=== PATIENT | male | born 1995 | race Caucasian/White ===

== ENCOUNTER 2017-01-21 09:44 | Emergency (ER) | payer SELFPAY ==
[2017-01-21 10:57] VITALS: RESP 17; O2SAT 98
--- NOTE | 2017-01-21 12:02 | ED PDOC ---
Arrival/HPI - General Chief Complaint: Abnormal Skin Integrity Time Seen by Provider: 01/21/17 10:28 Historian: Patient - History of Present Illness Narrative History of Present Illness (Text): 01/21/17 12:37 21yr old male presents today with rash to right side of neck x 4 days. Patient denies pain. Complaining of pruritus. Denies fevers or chills. Patient states he also noticed a small area of the rash on the right side of his chest as well as on his penis. Patient denies dysuria or urinary frequency. Denies penile discharge. Denies testicular pain. Patient denies abdominal pain. No nausea or vomiting. No dizziness or weakness. No medications have been taken at home. Patient states he had this rash once before. Patient states that he is using new soap recently. Denies any new medications. Patient states he only feels itchy and has been scratching the rash a lot. Time/Duration: Other (4 days) Symptom Onset: Gradual Symptom Course: Unchanged Quality: Other (NO pain) Past Medical History - Provider Review Nursing Documentation Reviewed: Yes - Travel History Have you recently traveled outside [place] w/in the past 3 mons?: No - Tetanus Immunization Tetanus Immunization: Unknown - Psychiatric Hx Psychophysiologic Disorder: No Hx Substance Use: No Family/Social History - Physician Review Nursing Documentation Reviewed: Yes Family/Social History: Unknown Family HX Smoking Status: Never Smoked Hx Alcohol Use: No Hx Substance Use: No Allergies/Home Meds Allergies/Adverse Reactions: Allergies No Known Allergies Allergy (Verified 01/21/17 10:03) Review of Systems - Review of Systems Constitutional: absent: Fatigue, Fevers Respiratory: absent: SOB, Cough Cardiovascular: absent: Chest Pain, Palpitations Gastrointestinal: absent: Abdominal Pain, Nausea, Vomiting Genitourinary Male: absent: Dysuria Musculoskeletal: absent: Arthralgias Skin: Rash, Pruritis Neurological: absent: Headache, Dizziness Psychiatric: absent: Anxiety, Depression Physical Exam Vital Signs Reviewed: Yes Vital Signs Temp Pulse Resp BP Pulse Ox 01/21/17 10:56 98.2 F 62 17 139/72 98 01/21/17 10:03 98.5 F 55 L 16 143/72 99 Temperature: Afebrile Blood Pressure: Normal Pulse: Regular Respiratory Rate: Normal Appearance: Positive for: Well-Appearing, Non-Toxic, Comfortable Pain Distress: None Mental Status: Positive for: Alert and Oriented X 3 - Systems Exam Head: Present: Atraumatic Mouth: Present: Moist Mucous Membranes Pharnyx: Present: Normal Nose (Internal): Present: Normal Inspection Neck: Present: Normal Range of Motion, Trachea Midline. No: Lymphadenopathy Respiratory/Chest: Present: Clear to Auscultation, Good Air Exchange. No: Respiratory Distress, Accessory Muscle Use Cardiovascular: Present: Regular Rate and Rhythm, Normal S1, S2. No: Murmurs Abdomen: No: Tenderness, Distention, Rebound, Guarding Genitourinary Male: Present: Other [facility] No: Normal External Genitalia (there are 4 small round erythematous raised plaques noted on shaft of penis; non tender; no vesicles. no ulcerations. no penile discharge. ), Circumcised Penis, Penile Discharge, Testicle Tenderness, Penile Swelling Upper Extremity: Present: Normal ROM Lower Extremity: Present: Normal ROM Neurological: Present: GCS=15, Speech Normal Skin: Present: Warm, Dry, Rashes (there are multiple erythematous raised plaques noted to right side of neck; no vesicles; non tender; there is one small erythematous rash plaque noted to the right anterior chest; no rash on palms or soles. ), Normal Color Psychiatric: Present: Alert, Oriented x 3 Medical Decision Making ED Course and Treatment: 01/21/17 13:26 Patient is nontoxic well-appearing in no distress with stable vital signs no angioedema. Lungs are clear to auscultation bilaterally there is no wheezing noted. The airway is patent benadryl PO Patient reassessment: pt non toxic well appearing; no distress. pt seen and evaluated by dr. cody; will place patient on lotrisone and f/u with derm. consider fungal rash vs ezcema, I advised taking Benadryl every 6 hours as needed for itch and Apply Lotrisone twice daily to affected area. Advised patient to follow up with primary care physician within the next 2 days and return if symptoms worsen persist or if new symptoms develop. Patient verbalizes understanding of discharge instructions and need for immediate followup. Impression :Rash Apply Lotrisone to the affected area twice daily Follow-up with the tool design drafter within the next 2 days Follow-up with primary care physician within the next 2 days Benadryl every 6 hours as needed for itch Return immediately if symptoms worsen persist or if new concerning symptoms develop - Medication Orders Current Medication Orders: Discontinued Medications Diphenhydramine HCl (Benadryl) 25 mg PO ONCE ONE Stop: 01/21/17 10:43 Last Admin: 01/21/17 10:53 Dose: 25 mg Disposition/Present on Arrival - Present on Arrival Any Indicators Present on Arrival: No History of DVT/PE: No History of Uncontrolled Diabetes: No Urinary Catheter: No History of Decub. Ulcer: No History Surgical Site Infection Following: None - Disposition Have Diagnosis and Disposition been Completed?: Yes Diagnosis: Rash Disposition: HOME/ ROUTINE Disposition Time: 11:59 Patient Plan: Discharge Condition: GOOD Discharge Instructions (ExitCare): Acute Rash (ED) Additional Instructions: Apply Lotrisone to the affected area twice daily Follow-up with the tool design drafter within the next 2 days Follow-up with primary care physician within the next 2 days Benadryl every 6 hours as needed for itch Return immediately if symptoms worsen persist or if new concerning symptoms develop Prescriptions: Clotrimazole/Betamethasone [Lotrisone] 1 appl EXT BID #1 tube DiphenhydrAMINE [Benadryl] 25 mg PO Q6H #20 cap Referrals: Angelita Cage MD [Staff Provider] - Follow up with primary Joo Coe MD [Staff Provider] - Follow up with primary Forms: [employer] ([place]ian), SCHOOL NOTE
[2017-01-21 12:10] VITALS: BP 108/70; PULSE 72; TEMP 98
== END 2017-01-21 12:13 | disposition home or self-care (01) ==
LOC: ED 09:44
DX: R21 Rash and other nonspecific skin eruption (principal)